=== PATIENT | male | born 1975 | race Caucasian/White ===

== ENCOUNTER 2021-03-21 14:13 | Outpatient (CLI) | payer OTHER, SELFPAY ==
--- NOTE | 2021-03-21 | USCV_ITS ---
Nino Cuellar Age: 45 Gender: M : 1975 Exam Date: 03/21/2021 14:20 Ordering Phys: Dragan Alejandro MD Technologist: Exam Location: [facility] [place]_ Indication: HTN Aortic Velocity @ SMA (cm/s) 101 RIGHT KIDNEY LEFT KIDNEY Velocity (cm/s) Velocity (cm/s) Sys/Mendez Sys/Mendez Resistive Index Resistive Index 61.5 / 24.0 0.61 Proximal Renal Artery 133.0 / 47.9 0.64 81.5 / 28.2 0.65 Mid Renal Artery 106.2 / 31.6 0.71 76.9 / 30.8 0.60 Distal Renal Artery 91.1 / 26.6 0.71 78.7 / 29.8 0.62 Hilar 83.4 / 27.3 0.67 23.8 / 8.5 0.64 Upper Pole 20.9 / 8.7 0.58 32.5 / 12.5 0.61 Mid Pole 28.5 / 9.6 0.66 54.8 / 16.7 0.69 Lower Pole 30.7 / 12.3 0.60 0.80 Renal Aortic Ratio 1.32 Accleration Index (cm/sec2) 2586.0 Hilar 1752.0 0 0 1329.0 Upper Pole 1800.0 0 0 1694.0 Mid Pole 1177.0 0 0 1234.0 Lower Pole 1195.0 0 0 107.7 Kidney Length (mm) 99.2 FINDINGS Mild chronic medical renal disease, no hydronephrosis. No evidence of abdominal aortic aneurysm. There is no evidence of hemodynamically significant right renal artery stenosis. There is no evidence of hemodynamically significant left renal artery stenosis. CONCLUSIONS There is no sonographic evidence of hemodynamically significant renal artery stenosis bilaterally. Dr. Jessica Smith DO (Electronically Signed) Final Date: 22 March 2021 09:30 S
== END 2021-03-21 14:14 | disposition home or self-care (01) ==
LOC: US 14:15
PROVIDERS: PCP Emergency Medicine Emergency Medical Services; Visit Provider Internal Medicine Nephrology
DX: I12.9 Hypertensive chronic kidney disease with stage 1 through stage 4 chronic kidney disease, or unspecified chronic kidney disease (principal); N18.32 Chronic kidney disease, stage 3b
CPT/HCPCS: 93975

== ENCOUNTER 2022-01-05 08:12 | Outpatient (CLI) | payer OTHER, SELFPAY ==
[2022-01-05 09:14] LABS: Alanine Aminotransferase 19 U/L (0-41); Albumin Level 4.1 g/dL (3.5-5.2); Alkaline Phosphatase 55 IU/L (40-130); Anion Gap 13.7 (5-19); Aspartate Amino Transferase 26 U/L (0-40); Blood Urea Nitrogen 22 mg/dL (6-20); Calcium 9.4 mg/dL (8.5-10.5); Carbon Dioxide 28 mmol/L (22-29); Chloride 104 mmol/L (98-107); Globulin 2.9 g/dL (1.3-4.6); Glomerular Filtration Rate 36.5 mL/min (90-130); Glucose 95 mg/dL (65-115); Osmolality Calculated 295 mOsm/kg (285-295); Potassium 4.7 mmol/L (3.5-5.1); Sodium 141 mmol/L (136-145); Total Bilirubin 0.5 mg/dL (0.15-1.2)
[2022-01-05 09:27] LABS: Add Urine Microscopic? YES; Bilirubin Urine Neg (Negative); Blood Urine 2+ (Negative); Glucose Urine UA Norm (Normal); Ketones Urine Negative (Negative); Leukocyte Esterase Urine Negative (Negative); Nitrate Urine Negative (Negative); Protein Urine 3+ (Negative); Specific Gravity, Urine 1.015 (1.005-1.030); Urine Appearance Clear (CLEAR); Urine Color Yellow (Yellow); Urobilinogen Urine Norm (Negative); pH Urine 6 (5-7)
[2022-01-05 09:28] LABS: Hyaline Casts Urine RARE /lpf; RBC Urine 0-4 /hpf (0-2); Squamous Epithelial Cell Urine RARE /hpf (0-5); WBC Urine RARE /hpf (0-5)
== END 2022-01-05 08:13 | disposition home or self-care (01) ==
LOC: LAB 08:17
PROVIDERS: PCP Emergency Medicine Emergency Medical Services; Visit Provider Chiropractor
DX: N18.9 Chronic kidney disease, unspecified (principal)
CPT/HCPCS: 36415; 80053; 81001

== ENCOUNTER → 2024-01-29 11:43 | Outpatient (BNVA) | payer OTHER, SELFPAY | PROVIDERS: PCP Family Medicine; Referring Provider Nurse Practitioner Family; Visit Provider Internal Medicine | DX: R07.9 Chest pain, unspecified (principal); N18.32 Chronic kidney disease, stage 3b; Z01.818 Encounter for other preprocedural examination; R00.1 Bradycardia, unspecified; Z87.891 Personal history of nicotine dependence | CPT/HCPCS: 93005; 99204 ==

== ENCOUNTER → 2024-02-13 15:52 | Outpatient (BNVA) | payer OTHER, SELFPAY | PROVIDERS: PCP Family Medicine; Visit Provider Nurse Practitioner Family | DX: L57.0 Actinic keratosis (principal); L72.0 Epidermal cyst; D22.5 Melanocytic nevi of trunk; L81.4 Other melanin hyperpigmentation; Z80.8 Family history of malignant neoplasm of other organs or systems | CPT/HCPCS: 17000; 99213 ==

== ENCOUNTER → 2024-02-20 07:59 | Outpatient (BNVA) | payer OTHER, SELFPAY | PROVIDERS: PCP Family Medicine; Visit Provider Surgery | DX: Z12.11 Encounter for screening for malignant neoplasm of colon (principal) | CPT/HCPCS: 99204 ==

== ENCOUNTER 2024-03-04 07:53 | Outpatient (CLI) | payer OTHER, SELFPAY ==
--- NOTE | 2024-03-04 | ECG_ITS ---
[facility] [place] Date: 2024-03-04 Pat Name: Nino Cuellar Department: Room: Gender: Male Newspaper Subscription Solicitor: Miguel A Chahal : 1975 Requested By: Aaron Shepard Order Number: [id number] Claribel MD: Aaron Shepard M.D. Interpretive Statements NAME OF STUDY: LEXISCAN SESTAMIBI STRESS TEST INDICATION: [CP, SOB, pre op clearance, ] Procedure: At the baseline, the blood pressure was 153/92 mmHg with a heart rate of 53 bpm. The electrocardiogram showed sinus bradycardia , normal axis with normal ST and T's. The Lexiscan was infused over a period of 20 seconds. A total of 0.4 mg of Lexiscan was infused. The stress phase was continued for a total of 5 minutes. Heart rate was at the end of stress phase was 89 bpm and a blood pressure of 118/69 mmHg. The EKG at the peak infusion revealed normal sinus rhythm with no significant ST-T wave changes. Sestamibi was injected 20 seconds after the Lexiscan infusion. Blood pressure at the end of recovery phase was 106 /62 mmHg with a heart rate of 89 bpm. Conclusion: 1. Normal EKG response to Lexiscan infusion 2. No Lexiscan induced chest pain or cardiac arrhythmia. 3. Normal blood pressure and heart rate response. 4. Sestamibi/sestamibi perfusion scan pending; see separate report. Electronically Signed On 03-04-2024 10:13:20 CDT by Aaron Shepard M.D. [id number]
[2024-03-04 08:03] VITALS: BMI 26.8
--- NOTE | 2024-03-04 08:04 | NMCV_ITS ---
NM fouzia perf SPECT r/s* [id number] Nino Cuellar Age: 48 Gender: M : 1975 Exam Date: 03/04/2024 09:16 Ordering Phys: Aaron Shepard M.D ([email or web address]) Technologist: ESTRADA Vick Exam Location: [facility] Indications: CP, pre-op clearance STRESS TEST [facility] IMAGE PROTOCOL Rest/Stress 1 Lexiscan Day Radiopharmaceutical Dose (mCi) Administration Site Administered by Rest: Tc-99m 10.5 IV ESTRADA Vick Sestamibi Stress:Tc-99m 32.6 IV ESTRADA Vick Sestamibi Rest: 04-Mar-2024 60 Discovery 630 Stress: 04-Mar-2024 30 Discovery 630 0.4mg Lexiscan. Images obtained in supine and prone position. SPECT RESULTS Technical Quality: Good Raw Data Analysis: Normal Image Corrections: No attenuation or motion correction applied Summed Stress Score: 5 Summed Rest Score: 1 Summed Difference Score: 4 PERFUSION FINDINGS FUNCTIONAL RESULTS (calculated via Gated SPECT) Stress Image LV EF (%): 57 Stress EDV (mL):147 TID: 1.09 Stress ESV (mL):63 FUNCTIONAL FINDINGS: There is normal left ventricular systolic function. IMPRESSIONS There appeared to be a large fixed perfusion defect in inferior and inferolatreal wall surounded by moderate area of mild to moderate reversibility suggestive of large area of old myocardial infarction surrounded by moderate ischemia in inferior and inferolateral wall . This is a positive nuclear scan for ischemia, EKG segment will be documented separately. Tamara Soto MD (Electronically Signed) Final Date: 04 March 2024 18:07 S
[2024-03-04] MEDS: regadenoson 0.4 Mg/5 ml Syringe IVP (09:51)
[2024-03-04 10:05] VITALS: BP 156/83; PULSE 72
--- NOTE | 2024-03-04 11:15 | USCV_ITS ---
Nino Cuellar Age: 48 Gender: M : 1975 Exam Date: 03/04/2024 08:19 Ordering Phys: Aaron Shepard M.D ([email or web address]) Technologist: CT Exam Location: [facility] [place] Indication: pre op BP: 120 / 90 HR: 55 Rhythm: Sinus Technical Quality: Adequate MEASUREMENTS (Male / Female) Normal Values 2D ECHO LVOT Diameter 2.3 cm LV Ejection Fraction MOD 4C 61.4 % LV Ejection Fraction MOD 2C 62.5 % LV Ejection Fraction 2C AL 64.5 % LA Diameter 2.9 cm RA Systolic Volume 4C AL 118.9 ml RA Systolic Volume 4C MOD 109.1 ml LA Sys Volume AL 63.5 cm cubed LA Sys Volume Index AL 27.7 cm cubed/m squared Aorta at Sinotubular Diameter 2.9 cm IVC Diameter 2.2 cm M-MODE LA Ao Ratio MM 1.2 AV Cusp Separation MM 1.9 cm DOPPLER AV Peak Velocity 137.0 cm/s LVOT Peak Velocity 110.0 cm/s AV Area Cont Eq vti 3.9 cm squared AV Area Cont Eq pk 3.2 cm squared MV Peak Velocity 100.0 cm/s MV Area PHT 3.9 cm squared Mitral E to A Ratio 1.5 TV Peak Velocity 244.7 cm/s TR Peak Velocity 290.0 cm/s TR Peak Gradient 33.6 mmHg Right Atrial Pressure 3.0 mmHg Pulmonary Artery Systolic Pressu 36.6 mmHg PV Peak Velocity 95.5 cm/s FINDINGS Left Ventricle Normal left ventricular size, systolic function and wall thickness, with no regional wall motion abnormalities. Left ventricular ejection fraction is estimated at 55 %. Grade I/IV diastolic dysfunction (abnormal relaxation filling pattern), normal to mildly elevated filling pressures. Right Ventricle Mildly increased right ventricular size. Right ventricular systolic pressure 36.6 mmHg. Right Atrium The right atrium is normal in size. Left Atrium The left atrium is normal in size. Mitral Valve Structurally normal mitral valve without significant stenosis or prolapse. There is no mitral regurgitation. Aortic Valve Structurally normal aortic valve without significant sclerosis or stenosis. There is no aortic regurgitation. Tricuspid Valve Mild tricuspid valve regurgitation. Pulmonic Valve Structurally normal pulmonic valve without significant stenosis. There is no pulmonic regurgitation. Pericardium Normal pericardium without effusion. Aorta Normal ascending aorta dimension. IVC The inferior vena cava appears normal. CONCLUSIONS Normal left ventricular size, systolic function and wall thickness, with no regional wall motion abnormalities. Left ventricular ejection fraction is estimated at 55 %. Grade I/IV diastolic dysfunction (abnormal relaxation filling pattern), normal to mildly elevated filling pressures. Mildly increased right ventricular size. Right ventricular systolic pressure 36.6 mmHg. Mild tricuspid valve regurgitation. There is no pericardial effusion. Right atrial pressure is around 10 mm of mercury. Tamara Soto MD (Electronically Signed) Final Date: 04 March 2024 16:40 S
== END 2024-03-04 07:54 | disposition home or self-care (01) ==
LOC: CDL 07:54
PROVIDERS: PCP Family Medicine; Visit Provider Internal Medicine
DX: Z01.818 Encounter for other preprocedural examination (principal); R07.9 Chest pain, unspecified; R06.02 Shortness of breath; I50.30 Unspecified diastolic (congestive) heart failure; R94.39 Abnormal result of other cardiovascular function study
CPT/HCPCS: 36415; 78452; 93017; 93306; 96374; A9500; J2785

== ENCOUNTER 2024-04-01 07:54 | Day surgery (SDC) | payer OTHER, SELFPAY ==
[2024-04-01 08:04] VITALS: BP 123/93; PULSE 70; RESP 18; TEMP 35.7; O2SAT 96
--- NOTE | 2024-04-01 08:10 | W.PM.OPSFHP ---
Same Day Surgery H&P Indication for Procedure/HPI DATE OF PROCEDURE: April 01, 2024 CHIEF COMPLAINT/INDICATIONFOR SURGICAL PROCEDURE: need for screening colonoscopy PREOP DIAGNOSIS: need for screening colonoscopy PLANNED PROCEDURE: Operation Date: 04/01/24 09:00 Proposed Procedures p COLONOSCOPY - 19637, G0121, Z12.11(Not Applicable) - Alex Mcbride MD Medications/Allergies* Home Medications Medication Instructions Recorded Confirmed Type No Known Home Medications 01/29/24 03/27/24 History Allergies/Adverse Reactions Allergy/AdvReac Type Severity Reaction Status Date / Time No Known Allergies Allergy Verified 03/27/24 10:46 Pertinent History/Comorbid Conditions* Social History Smoking and tobacco/nicotine status: former use of tobacco/nicotine Alcohol intake: current Substance/Drug Use: never Pertinent Exam Findings alert, oriented x 3, clear to auscultation bilaterally and regular rate & rhythm Recommendations Surgery/Procedure today Coding Level of Care Code Acute Code for Chg Fwd
[2024-04-01] MEDS: sodium chloride 0.9% 1,000 ML 30 ML IV (08:24)
--- NOTE | 2024-04-01 08:51 | ANES.PREANE2 ---
Pre-Anesthetic Assessment Height/Weight: Height 1.88 m Weight 95.708 kg Temp Pulse Resp BP Pulse Ox O2 Del Method 96.2 F L 70 18 123/93 96 Room Air 04/01/24 08:04 04/01/24 08:04 04/01/24 08:04 04/01/24 08:04 04/01/24 08:04 04/01/24 08:04 Preop Diagnosis: need for screening colonoscopy Operation Date: 04/01/24 09:00 Proposed Procedures p COLONOSCOPY - [id number], G0121, Z12.11(Not Applicable) - Alex Mcbride MD Familial anesthetic complications: none Was Beta Ruslan taken within 24 hours: N/A Was Clonidine taken within 24 hours: N/A Last intake: Intake Last Liquid Date 04/01/24 Last Liquid Time 02:00 Last Solid Date 03/30/24 Last Solid Time 19:30 Social No alcohol and No tobacco Exam alert, oriented x 3, clear to auscultation bilaterally and regular rate & rhythm Airway Submandibular: within normal limits Cervical ROM: within normal limits Mallampati: Class I Dentition: partials (lower bridge) Pulmonary None reported CV/HEM None reported 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 Hepatic None reported GI None reported Metabolic None reported Musc/skel None reported Neuropsych None reported Anesthetic Plan ASA status: 3 Anesthesia: MAC Other: Labs drawn at [facility] last week, they are actively faxing over results. Medications/Allergies Home Medications Medication Instructions Recorded Confirmed Last Taken Type No Known Home Medications 01/29/24 03/27/24 Unknown History Allergies Allergy/AdvReac Type Severity Reaction Status Date / Time No Known Allergies Allergy Verified 03/27/24 10:46 Current Medications Generic Name Dose Route Start Last Admin Trade Name Freq PRN Reason Stop Dose Admin Sodium Chloride 1,000 mls @ 30 mls/hr 04/01/24 08:00 04/01/24 08:24 Sodium Chloride 0.9% IV 30 mls/hr .Q24H SHIRA Administration PFSH Anesthesia Social History Smoking and tobacco/nicotine status: former use of tobacco/nicotine Alcohol intake: current Substance/Drug Use: never Data Anesthesia Cardiac Studies: Echocardiogram 03/04/24 Sestamibi Stress Test (Cardiology) 03/04/24
[2024-04-01 10:07] VITALS: BP 118/74; PULSE 62; RESP 18; TEMP 36.1; O2SAT 96
[2024-04-01 10:18] VITALS: BP 144/90; PULSE 64; RESP 18; TEMP 36.2; O2SAT 96
--- NOTE | 2024-04-01 10:35 | ANE.PACU2 ---
Inpatient post-anesthesia follow up: Airway intact: Yes Vital signs: Temperature 97.1 F Pulse Rate 64 Respiratory Rate 18 Blood Pressure 144/90 Pulse Oximetry 96 Oxygen Delivery Me thod Room Air Oxygen Flow Rate Fraction of Inspir ed Oxygen Hydration adequate: Yes Nausea and vomiting: No Pain level: 1 Mental status: Baseline
== END 2024-04-01 10:35 | disposition home or self-care (01) ==
PROVIDERS: PCP Family Medicine; Visit Provider Surgery
PROC: 0DJD8ZZ Inspection of Lower Intestinal Tract, Via Natural or Artificial Opening Endoscopic (ICD-10-PCS; CPT 45378; principal; 2024-04-01 09:00)
DX: Z12.11 Encounter for screening for malignant neoplasm of colon (principal); Z87.891 Personal history of nicotine dependence; N18.9 Chronic kidney disease, unspecified
CPT/HCPCS: 45378; J2704; J7030

== ENCOUNTER 2024-04-08 12:26 | Outpatient (CLI) | payer OTHER, SELFPAY ==
--- NOTE | 2024-04-08 12:35 | US_ITS ---
WS: [id number] RENAL ULTRASOUND HISTORY: KIDNEY TRANSPLANT EVALUATION COMPARISON: 10/12/2016 TECHNIQUE: 2-D and color Doppler imaging of the kidney submitted. Right kidney: 9.1 cm x 4.2 cm x 4.0 cm. Cortex: 1.3 cm Kidney is measures slightly smaller than on the prior study with very slight increased echogenicity. No thinning of the cortex. No solid mass. There is a tiny cortical cyst mid kidney measuring 0.7 x 0. 6 x 0.6 cm. Left kidney: 8.4 cm x 3.6 cm x 4.4 cm. Cortex: 1.3 cm Kidneys measuring smaller in size as compared to the prior study. Mild increased echogenicity. No cor tical thinning. No obstruction. Tiny cortical cyst upper pole. Cyst measures 0.8 x 0.6 x 0.6 cm. Aorta: Normal. Urinary Bladder: Normal distention. Mild prostate gland heterogeneity. US/US renal BI* [id number] IMPRESSION: 1. Kidneys have measures slightly smaller in size than on the prior examashleetio n from 10/12/2016. On the prior examination both kidneys measure 10.8 cm in claritza th. 2. No hydronephrosis.
== END 2024-04-08 12:27 | disposition home or self-care (01) ==
PROVIDERS: PCP Family Medicine; Visit Provider Nurse Practitioner Family
DX: Z94.0 Kidney transplant status (principal)
CPT/HCPCS: 76770

== ENCOUNTER 2025-01-19 07:40 | Outpatient (CLI) | payer OTHER, SELFPAY ==
[2025-01-19 08:45] LABS: Free T4 Free Thyroxine 0.99 ng/dL (0.82-1.77); Thyroid Stimulating Hormone 1.69 uIU/mL (0.27-4.20)
== END 2025-01-19 07:41 | disposition home or self-care (01) ==
LOC: LAB 07:42
PROVIDERS: PCP Family Medicine; Visit Provider Chiropractor
DX: E03.9 Hypothyroidism, unspecified (principal)
CPT/HCPCS: 36415; 84439; 84443; 84481

== ENCOUNTER → 2025-03-05 09:04 | Outpatient (BNVA) | payer OTHER, SELFPAY | PROVIDERS: PCP Family Medicine; Visit Provider Nurse Practitioner Family | DX: L72.0 Epidermal cyst (principal); L81.4 Other melanin hyperpigmentation; D22.5 Melanocytic nevi of trunk; Z80.8 Family history of malignant neoplasm of other organs or systems; L57.0 Actinic keratosis | CPT/HCPCS: 17000; 99213 ==